=== PATIENT | female | born 1975 | race Two or more races ===

== ENCOUNTER 2022-03-02 06:31 | Day surgery (SDC) | payer OTHER ==
[~2022-03-02 06:31] MED LIST: ASA81 MG PO; LOVENOX40 MG/0.4 SUBCUTANEO; PEPCID20 MG PO; PRENATAL TABLE1 EAC1 PO; PROGESTERONE200 MG PO
== END 2022-03-02 16:15 | disposition home or self-care (01) ==
LOC: CIR.AMB 06:31 → ADM 07:45 → CIR.AMB 07:45
PROVIDERS: ATTEND Obstetrics & Gynecology
DX: N84.0 Polyp of corpus uteri (principal); J45.909 Unspecified asthma, uncomplicated; Z86.16 Personal history of COVID-19

== ENCOUNTER 2022-05-28 13:46 | Emergency (ER) | payer OTHER ==
[~2022-05-28] VITALS: Ht 160 cm; Wt 59.0 kg
[2022-05-28] MEDS ORDERED: PROZAC40 MG PO (14:04)
[2022-05-28] MEDS ORDERED: ADULT ASPIRIN81 MG PO (14:05)
== END 2022-05-28 18:31 | disposition home or self-care (01) ==
LOC: ER 13:46
DX: K13.79 Other lesions of oral mucosa (principal); Z20.822 Contact with and (suspected) exposure to COVID-19